=== PATIENT | female | born 1960 | race Hispanic/Latino ===

== ENCOUNTER 2017-05-22 07:57 | Emergency (ER) | payer MEDICAID ==
[2017-05-22 08:00] VITALS: BMI 23.3
[2017-05-22 08:07] VITALS: O2SAT 98
--- NOTE | 2017-05-22 08:38 | ED PDOC ---
HPI: General Adult Time Seen by Provider: 05/22/17 08:03 Chief Complaint (Nursing): Flu-like Symptoms Chief Complaint (Provider): Flu-like Symptoms History Per: Patient History/Exam Limitations: no limitations Onset/Duration Of Symptoms: Days (x 2) Current Symptoms Are (Timing): Still Present Additional Complaint(s): Ms. Keith is a 57 year old female who presents to the emergency department complaining of fever, body aches, coughing and headache for 2 days. Patient states she took Tylenol yesterday with relief. PMD: Provider TBD Past Medical History Reviewed: Historical Data, Nursing Documentation, Vital Signs Vital Signs: Last Vital Signs Temp 99 F 05/22/17 14:18 Pulse 100 H 05/22/17 14:18 Resp 20 05/22/17 14:18 BP 120/70 05/22/17 14:18 Pulse Ox 98 05/22/17 14:18 - Medical History PMH: No Chronic Diseases - Surgical History Other surgeries: Hysterectomy - Family History Family History: States: Unknown Family Hx - Social History Current smoker - smoking cessation education provided: No Alcohol: None Drugs: Denies - Home Medications Home Medications: Ambulatory Orders Medication Instructions Recorded Amoxicillin 500 mg PO BID #14 cap 09/28/14 Pseudoephedrine Hydrochlorid 60 mg PO Q6 #20 tab 09/28/14 [Pseudoephedrine HCl] Ondansetron ODT [Zofran ODT] 4 mg PO TID #21 odt 04/12/15 Ciprofloxacin HCl [Ciprofloxacin] 500 mg PO BID #20 tab 05/13/15 Dicyclomine [Bentyl] 10 mg PO QID #10 cap 05/13/15 Metronidazole [Flagyl] 500 mg PO BID #14 tab 05/13/15 Nitrofurantoin Macrocrystals 100 mg PO BID #14 cap 07/26/15 [Macrobid] Oseltamivir [Tamiflu] 75 mg PO BID #10 cap 07/26/15 Azithromycin [Zithromax] 250 mg PO DAILY #4 tab 05/22/17 Oseltamivir [Tamiflu] 75 mg PO BID #9 cap 05/22/17 - Allergies Allergies/Adverse Reactions: Allergies Allergy/AdvReac Type Severity Reaction Status Date / Time No Known Allergies Allergy Verified 05/22/17 08:04 Review of Systems ROS Statement: Except As Marked, All Systems Reviewed And Found Negative Constitutional: Positive for: Fever, Other (Body aches) Respiratory: Positive for: Cough Neurological: Positive for: Headache Physical Exam - Reviewed Nursing Documentation Reviewed: Yes Vital Signs Reviewed: Yes - Physical Exam Appears: Positive for: Well, Non-toxic, No Acute Distress Head Exam: Positive for: ATRAUMATIC Skin: Positive for: Normal Color, Warm, DRY Eye Exam: Positive for: EOMI, Normal appearance, PERRL ENT: Positive for: Normal ENT Inspection Neck: Positive for: Normal Cardiovascular/Chest: Positive for: Regular Rate, Rhythm Respiratory: Positive for: Normal Breath Sounds. Negative for: Accessory Muscle Use, Rales, Rhonchi, Wheezing, Respiratory Distress Gastrointestinal/Abdominal: Positive for: Normal Exam, Bowel Sounds, Soft Back: Positive for: Normal Inspection Extremity: Positive for: Normal ROM. 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 The lateral view appears unremarkable. No definite air bronchograms are related to this area and it could be a function of increased reticular changes. Clinically correlate further as an acute interstitial or potentially alveolar pulmonary process is not completely excluded. Remaining lung burrell appear clear. PLEURA: No significant pleural effusion identified. No pneumothorax apparent. CARDIOVASCULAR: Cardiac silhouette remains unremarkable. No pulmonary vascular derangement. OSSEOUS STRUCTURES: No significant abnormalities. VISUALIZED UPPER ABDOMEN: Normal. OTHER FINDINGS: None. IMPRESSION: Limited increase density at the inferior right lung zone may be extrinsic to the right lung as this is seen only in the frontal view. Active interstitial pulmonary disease difficult to exclude here or even early alveolar disease. The left chest remains unremarkable. Further clinical correlation is advised. Scribe Attestation: Documented by Eric Gifford, acting as a scribe for Swetha Mejia MD. Provider Scribe Attestation: All medical record entries made by the Scribe were at my direction and personally dictated by me. I have reviewed the chart and agree that the record accurately reflects my personal performance of the history, physical exam, medical decision making, and the department course for this patient. I have also personally directed, reviewed, and agree with the discharge instructions and disposition. Disposition - Clinical Impression Clinical Impression: Pneumonia, Influenza-like symptoms - Disposition Referrals: [facility] [Outside] Disposition: Routine/Home Disposition Time: 12:56 Condition: STABLE Additional Instructions: FOLLOW-UP WITH PMD WITHIN 2 DAYS FOR REEVALUATION. Prescriptions: Azithromycin [Zithromax] 250 mg PO DAILY #4 tab Oseltamivir [Tamiflu] 75 mg PO BID #9 cap Instructions: Flu, Community-Acquired Pneumonia in Adults, Oseltamivir Forms: [employer] (Welsh), [facility] ED School/Work Excuse Print Language: ROMANSH
--- NOTE | 2017-05-22 09:08 | RAD ---
HISTORY: Fever COMPARISON: Chest radiographs 04/12/2015. TECHNIQUE: Chest PA and lateral FINDINGS: LUNGS: Mildly increased density is identified in the inferior right lung zone when compared to the left but only in the frontal view. The lateral view appears unremarkable. No definite air bronchograms are related to this area and it could be a function of increased reticular changes. Clinically correlate further as an acute interstitial or potentially alveolar pulmonary process is not completely excluded. Remaining lung burrell appear clear. PLEURA: No significant pleural effusion identified. No pneumothorax apparent. CARDIOVASCULAR: Cardiac silhouette remains unremarkable. No pulmonary vascular derangement. OSSEOUS STRUCTURES: No significant abnormalities. VISUALIZED UPPER ABDOMEN: Normal. OTHER FINDINGS: None. IMPRESSION: Limited increase density at the inferior right lung zone may be extrinsic to the right lung as this is seen only in the frontal view. Active interstitial pulmonary disease difficult to exclude here or even early alveolar disease. The left chest remains unremarkable. Further clinical correlation is advised.
[2017-05-22] MEDS ORDERED: cefTRIAXone (Rocephin) 1 gm Inj ONE (09:23)
[2017-05-22] MEDS: Sodium Chloride 0.9% 500 ML IV STA (09:29)
[2017-05-22 09:46] LABS: BASO % 0.3 % (0.0-2.0); EOS % 0.2 % (0.0-4.0); HEMOGLOBIN 13.6 g/dL (12.0-16.0); LYMPH # 0.8 K/uL (1.0-4.3); LYMPH % 8.2 % (20.0-40.0); MEAN CELL VOLUME 89.1 fl (81.0-99.0); MEAN CORPUSCULAR HEMOGLOBIN 29.7 pg (27.0-31.0); MEAN CORPUSCULAR HGB CONC 33.3 g/dL (33.0-37.0); MEAN PLATELET VOLUME 9.9 fl (7.2-11.7); MONO # 0.7 K/uL (0.0-0.8); MONO % 6.9 % (0.0-10.0); NEUT % 84.4 % (50.0-75.0); PLATELET COUNT 202 K/uL (130-400); RBC 4.59 Mil/uL (3.80-5.20); RED CELL DISTRIBUTION WIDTH 13.5 % (11.5-14.5); WHITE BLOOD COUNT 9.5 K/uL (4.8-10.8)
[2017-05-22 09:53] LABS: ALBUMIN 3.9 g/dL (3.5-5.0); ALT/SGPT 34 U/L (9-52); AST/SGOT 29 U/L (14-36); BLOOD UREA NITROGEN 12 mg/dl (7-17); CALCIUM 8.5 mg/dL (8.4-10.2); GFR AFRICAN-AMERICAN > 60; GFR NON-AFRICAN AMERICAN > 60
[2017-05-22 10:00] LABS: VENOUS BLOOD GAS BASE EXCESS 2.1 mmol/L (0.0-2.0); VENOUS BLOOD GAS PCO2 35 mmHg (40-60); VENOUS BLOOD GAS PO2 65 mm/Hg (30-55); VENOUS BLOOD PH 7.47 (7.32-7.43)
[2017-05-22] MEDS: Azithromycin 500 MG in Sodium Chloride 0.9% 250 ML IV STA (10:30)
[2017-05-22 13:42] LABS: LYMPHOCYTE 7 % (20-50); MONOCYTE 6 % (0-10); NEUTROPHIL 87 % (42-75); TOTAL CELLS COUNTED 100
[2017-05-22 13:43] LABS: PLATELET ESTIMATE NORMAL (NORMAL)
[2017-05-22 14:25] VITALS: BP 120/70; PULSE 100; RESP 20; TEMP 99
== END 2017-05-22 14:25 | disposition home or self-care (01) ==
LOC: H.ER 07:57
DX: J18.9 Pneumonia, unspecified organism (principal); J11.1 Influenza due to unidentified influenza virus with other respiratory manifestations
CPT/HCPCS: 71046; 80053; 82803; 85025; 87040; 96365; 96367; 99284; J0456; J0696; J7040

== ENCOUNTER 2017-05-26 09:11 | Emergency (ER) | payer MEDICAID ==
[2017-05-26 09:12] VITALS: BMI 23.3
[2017-05-26 09:23] VITALS: RESP 16
[2017-05-26 10:20] LABS: BASO # 0.1 K/uL (0.0-0.2); BASO % 0.7 % (0.0-2.0); EOS # 0.1 K/uL (0.0-0.7); EOS % 1.4 % (0.0-4.0); HEMOGLOBIN 13.5 g/dL (12.0-16.0); LYMPH # 1.3 K/uL (1.0-4.3); MEAN CELL VOLUME 86.9 fl (81.0-99.0); MEAN CORPUSCULAR HGB CONC 34.5 g/dL (33.0-37.0); MEAN PLATELET VOLUME 9.3 fl (7.2-11.7); MONO # 0.4 K/uL (0.0-0.8); MONO % 4.9 % (0.0-10.0); NEUT # 5.6 K/uL (1.8-7.0); NRBC % 0.1 % (0.0-0.0); RBC 4.5 Mil/uL (3.80-5.20); RED CELL DISTRIBUTION WIDTH 13.3 % (11.5-14.5); WHITE BLOOD COUNT 7.5 K/uL (4.8-10.8)
[2017-05-26 10:53] LABS: BLOOD UREA NITROGEN 19 mg/dl (7-17); CALCIUM 8.9 mg/dL (8.4-10.2); GFR AFRICAN-AMERICAN > 60; GFR NON-AFRICAN AMERICAN > 60
--- NOTE | 2017-05-26 11:08 | CT ---
PROCEDURE: CT HEAD WITHOUT CONTRAST. HISTORY: headache COMPARISON: None available. TECHNIQUE: Axial computed tomography images were obtained through the head/brain without intravenous contrast. Radiation dose: Total exam DLP = 816.55 mGy-cm. This CT exam was performed using one or more of the following dose reduction techniques: Automated exposure control, adjustment of the mA and/or kV according to patient size, and/or use of iterative reconstruction technique. FINDINGS: HEMORRHAGE: No intracranial hemorrhage. BRAIN: Normal ferrari-white matter differentiation and density are appreciated throughout the cerebrum and cerebellum with the brainstem appearing unremarkable as well. There is no mass effect. There is no suspicious extra-axial fluid collection and the midline brain anatomy appears diffusely unremarkable. VENTRICLES: Unremarkable. No hydrocephalus. CALVARIUM: Unremarkable. PARANASAL SINUSES: Multifocal bilateral ethmoid and maxillary sinusitis changes are seen as well as at the left sphenoid sinus. MASTOID AIR CELLS: Unremarkable as visualized. No inflammatory changes. OTHER FINDINGS: None. IMPRESSION: Unremarkable unenhanced head CT although incidental sinusitis changes are identified as discussed above. GoNormal CT of the Head.
--- NOTE | 2017-05-26 12:08 | ED PDOC ---
HPI: General Adult Time Seen by Provider: 05/26/17 09:28 Chief Complaint (Nursing): GI Problem Chief Complaint (Provider): Dizziness; Nausea and Vomiting History Per: Patient History/Exam Limitations: no limitations Onset/Duration Of Symptoms: Hrs (morning) Additional Complaint(s): 57 y/o female presents to the ED complaining of dizziness as well as nausea and vomiting onset couple of hours ago. When she woke up she felt the room spinning around and the dizziness becomes worse with movement. She also vomited two times and felt nauseous. She has been treated for pneumonia. Denies loss of consciousness, diarrhea, abdominal pain. PMD: Clinic in [place] Past Medical History Reviewed: Historical Data, Nursing Documentation, Vital Signs Vital Signs: Last Vital Signs Temp 97 F L 05/26/17 09:21 Pulse 72 05/26/17 14:15 Resp 16 05/26/17 09:21 BP 153/98 H 05/26/17 14:15 Pulse Ox 100 05/26/17 14:15 - Medical History PMH: No Chronic Diseases - Surgical History Surgical History: No Surg Hx - Family History Family History: States: Unknown Family Hx - Home Medications Home Medications: Ambulatory Orders Medication Instructions Recorded Amoxicillin 500 mg PO BID #14 cap 09/28/14 Pseudoephedrine Hydrochlorid 60 mg PO Q6 #20 tab 09/28/14 [Pseudoephedrine HCl] Ondansetron ODT [Zofran ODT] 4 mg PO TID #21 odt 04/12/15 Ciprofloxacin HCl [Ciprofloxacin] 500 mg PO BID #20 tab 05/13/15 Dicyclomine [Bentyl] 10 mg PO QID #10 cap 05/13/15 Metronidazole [Flagyl] 500 mg PO BID #14 tab 05/13/15 Nitrofurantoin Macrocrystals 100 mg PO BID #14 cap 07/26/15 [Macrobid] Oseltamivir [Tamiflu] 75 mg PO BID #10 cap 07/26/15 Azithromycin [Zithromax] 250 mg PO DAILY #4 tab 05/22/17 Oseltamivir [Tamiflu] 75 mg PO BID #9 cap 05/22/17 Meclizine [Meclizine*] 25 mg PO Q6 PRN #30 tab 05/26/17 - Allergies Allergies/Adverse Reactions: Allergies Allergy/AdvReac Type Severity Reaction Status Date / Time No Known Allergies Allergy Verified 05/22/17 08:04 Review of Systems ROS Statement: Except As Marked, All Systems Reviewed And Found Negative Gastrointestinal: Positive for: Nausea, Vomiting (x2). Negative for: Abdominal Pain, Diarrhea Neurological: Positive for: Dizziness. Negative for: Other (loss of consciousness) Physical Exam - Reviewed Nursing Documentation Reviewed: Yes Vital Signs Reviewed: Yes - Physical Exam Appears: Positive for: Well, Non-toxic, No Acute Distress Head Exam: Positive for: ATRAUMATIC, NORMAL INSPECTION, NORMOCEPHALIC Skin: Positive for: Normal Color, Warm, Dry Eye Exam: Positive for: Normal appearance, EOMI, PERRL. Negative for: Nystagmus ENT: Positive for: Normal ENT Inspection Neck: Positive for: Normal, Painless ROM, Supple. Negative for: Decreased ROM Cardiovascular/Chest: Positive for: Regular Rate, Rhythm. Negative for: Murmur , Bradycardia Respiratory: Positive for: Normal Breath Sounds. Negative for: Decreased Breath Sounds, Wheezing, Respiratory Distress Gastrointestinal/Abdominal: Positive for: Normal Exam, Bowel Sounds, Soft. Negative for: Tenderness, Guarding, Rebound Back: Positive for: Normal Inspection. Negative for: L CVA Tenderness, R CVA Tenderness Extremity: Positive for: Normal ROM. 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 Negative for: Motor/Sensory Deficits - Laboratory Results Result Diagrams: 05/26/17 10:16 05/26/17 10:16 - ECG ECG: Positive for: Interpreted By Me, Viewed By Me ECG Rhythm: Positive for: Normal QRS, Normal ST Segment. Negative for: ST/T Changes Interpretation Of Abn EKG: LAD O2 Sat by Pulse Oximetry: 99 (RA) Pulse Ox Interpretation: Normal - Progress Re-evaluation Time: 14:22 Condition: Re-examined, Improved Medical Decision Making Medical Decision Making: Time:10:02 Initial Impression: Vertigo (BVP and Vestibular neuritis) Differential Diagnosis includes but is not limited to: Peripheral vertigo and Central Vertigo (Cerebellar and CVA) Initial Plan: --Head w/o Contrast CT --EKG --BMP --Troponin I --Urine --Urine Dipstick --CBC --Antivert 25mg --Reevaluation Time: 12:59 FINDINGS: HEMORRHAGE: No intracranial hemorrhage. BRAIN: Normal ferrari-white matter differentiation and density are appreciated throughout the cerebrum and cerebellum with the brainstem appearing unremarkable as well. There is no mass effect. There is no suspicious extra-axial fluid collection and the midline brain anatomy appears diffusely unremarkable. VENTRICLES: Unremarkable. No hydrocephalus. CALVARIUM: Unremarkable. PARANASAL SINUSES: Multifocal bilateral ethmoid and maxillary sinusitis changes are seen as well as at the left sphenoid sinus. MASTOID AIR CELLS: Unremarkable as visualized. No inflammatory changes. OTHER FINDINGS: None. IMPRESSION: Unremarkable unenhanced head CT although incidental sinusitis changes are identified as discussed above. GoNormal CT of the Head. Documented by Rony Lowe acting as a scribe for Radha Newton MD. All medical record entries made by the Scribe were at my direction and personally dictated by me. I have reviewed the chart and agree that the record accurately reflects my personal performance of the history, physical exam, medical decision making, and the department course for this patient. I have also personally directed, reviewed, and agree with the discharge instructions and disposition. Disposition - Clinical Impression Clinical Impression: Vertigo - Patient ED Disposition Is Patient to be Admitted: No Doctor Will See Patient In The: Office Counseled Patient/Family Regarding: Studies Performed, Diagnosis, Need For Followup - Disposition Referrals: [facility] [Outside] Disposition: Routine/Home Disposition Time: 14:23 Condition: GOOD Additional Instructions: Take your medications as instructed. Follow up with your PCP in 2-3 days. You will be called for follow up in 2 days. Prescriptions: Meclizine [Meclizine*] 25 mg PO Q6 PRN #30 tab PRN Reason: Dizziness Instructions: Vertigo (a Type of Dizziness) Forms: [employer] ([place] Zealander)
[2017-05-26 14:15] VITALS: TEMP 97
[2017-05-26 14:16] VITALS: BP 153/98; PULSE 72
[2017-05-26 14:26] VITALS: O2SAT 99
--- NOTE | 2017-05-26 17:59 | CARD ---
APPROVED REPORT EKG Measurement Heart [id number] <Conclusion> Normal sinus rhythm Left axis deviation Abnormal ECG
== END 2017-05-26 14:39 | disposition home or self-care (01) ==
LOC: H.ER 09:11
DX: R42 Dizziness and giddiness (principal); J32.9 Chronic sinusitis, unspecified
CPT/HCPCS: 70450; 80048; 81025; 84484; 85025; 93005; 96374; 99282; J1885; J2765